=== PATIENT | female | born 1945 | race Two or more races ===

== ENCOUNTER 2017-04-22 12:22 | Emergency (ER) | payer MEDICARE ==
[~2017-04-22] VITALS: Ht 157.5 cm; Wt 63.5 kg
[2017-04-22] MEDS ORDERED: cloNIDine HCL 0.1 MG TAB ONE (12:59)
[2017-04-22 13:09] VITALS: BP 203/59
[2017-04-22] MEDS ORDERED: cloNIDine HCL 0.1 MG TAB PO ONE (13:15)
== END 2017-04-22 14:36 | disposition left against medical advice (07) ==
LOC: ER 12:32
DX: M79.675 Pain in left toe(s) (principal); Z89.422 Acquired absence of other left toe(s); Z53.21 Procedure and treatment not carried out due to patient leaving prior to being seen by health care provider